=== PATIENT | male | born 1975 | race Caucasian/White ===

== ENCOUNTER 2022-10-24 12:57 | Outpatient (CLI) | payer OTHER, SELFPAY ==
--- NOTE | 2022-10-24 13:11 | XR_ITS ---
WS: [id number] XR shoulder LT min 2V* [id number] REASON FOR EXAM: SHOULDER PROBLEMS FINDINGS: No fracture or focal bone lesion. Acromioclavicular joint space intact with mild subchondral sclerosis and osteophytosis. Glenohumeral joint is intact. No significant narrowing. Mild subchondral sclerosis and osteophytosis of the glenoid. No soft tissue abnormality. XR/XR shoulder LT min 2V* [id number] IMPRESSION: Mild osteoarthritis of the acromioclavicular and glenohumeral joints.
--- NOTE | 2022-10-24 13:11 | XR_ITS ---
WS: [id number] XR knee LT 1-2V [id number] REASON FOR EXAM: KNEE PROBLEMS FINDINGS: No fracture or focal bone lesion. Medial, lateral, and patellofemoral joint spaces are intact and well preserved. No soft tissue abnormality. XR/XR knee LT 1-2V [id number] IMPRESSION: No significant bone or joint abnormality.
--- NOTE | 2022-10-24 13:11 | XR_ITS ---
WS: [id number] XR lumbar spine 2-3V* [id number] REASON FOR EXAM: BACK PROBLEMS FINDINGS: Mild rotatory scoliosis convex right. Straightening of the normal lordosis. No vertebral body abnormality. Minimal osteophytosis of the vertebral bodies L3-L5. Intervertebral disc spaces are intact and relatively well-preserved. No spondylolysis. No significant spondylolisthesis. XR/XR lumbar spine 2-3V* [id number] IMPRESSION: Mild changes of degenerative spondylosis as above.
== END 2022-10-24 12:58 | disposition home or self-care (01) ==
PROVIDERS: Visit Provider Dermatology
DX: Z02.71 Encounter for disability determination (principal); M19.012 Primary osteoarthritis, left shoulder; M47.816 Spondylosis without myelopathy or radiculopathy, lumbar region
CPT/HCPCS: 72100; 73030; 73560